=== PATIENT | male | born 1985 | race Caucasian/White ===

== ENCOUNTER 2024-08-08 11:36 | Inpatient (IN) | payer OTHER ==
[2024-08-08 12:04] VITALS: BMI 17.9
[2024-08-08] MEDS ORDERED: DICYCLOMINE HCL 10 MG CAPSULE PO PRN (12:12)
[2024-08-08] MEDS ORDERED: methaDONE HCL 10 MG TABLET (FOR DETOX USE ONLY) PO PRN (12:12)
[2024-08-08] MEDS ORDERED: MAG HYDROX/AL HYDROX/SIMETH 30 ML UNIT-DOSE CUP PO PRN (12:12)
[2024-08-08] MEDS ORDERED: diazePAM 5 MG TABLET PO PRN (12:12)
[2024-08-08] MEDS ORDERED: BENZOCAINE/MENTHOL (CHLORASEPTIC ) LOZENGE MM PRN (12:12)
[2024-08-08] MEDS ORDERED: NALOXONE (NARCAN) HCL 4 MG/0.1 ML SPRAY NS PRN (12:12)
[2024-08-08] MEDS ORDERED: BISMUTH SUBSALICYLATE 262 MG/15 ML BTL PO PRN (12:12)
[2024-08-08] MEDS ORDERED: POLYETHYLENE GLYCOL (HEALTHYLAX) 3350 17 GM PACKET PO PRN (12:12)
[2024-08-08] MEDS ORDERED: IBUPROFEN 400 MG TABLET (FP) PO PRN (12:12)
[2024-08-08] MEDS ORDERED: MAGNESIUM HYDROX 2400MG/30ML ORAL SUSPENSION 30 ML CUP PO PRN (12:12)
[2024-08-08] MEDS ORDERED: guaiFENesin 600 MG TABLET.ER (FP) PO PRN (12:12)
[2024-08-08] MEDS ORDERED: LOPERAMIDE HCL 2 MG CAPSULE PO PRN (12:12)
[2024-08-08] MEDS ORDERED: BENZONATATE 200 MG CAPSULE PO PRN (12:12)
[2024-08-08] MEDS ORDERED: NICOTINE 21 MG/24 HOURS TOPICAL PATCH ONE (12:44)
[2024-08-08] MEDS ORDERED: BUPRENORPHINE/NALOXONE 0.5 MG/0.125 MG FILM ONE (12:45)
[2024-08-08] MEDS ORDERED: methaDONE HCL 10 MG TABLET (FOR DETOX USE ONLY) ONE (12:45)
[2024-08-08] MEDS ORDERED: PRENATAL VITAMINS W/ FOLIC ACID TABLET (FP) PO ONE (12:45)
[2024-08-08] MEDS: BUPRENORPHINE/NALOXONE 0.5 MG/0.125 MG FILM SL ONE ×2 (12:47→22:17)
[2024-08-08] MEDS: PRENATAL VITAMINS W/ FOLIC ACID TABLET (FP) PO SCH (12:47)
[2024-08-08] MEDS: methaDONE HCL 10 MG TABLET (FOR DETOX USE ONLY) PO ONE (12:48)
[2024-08-08] MEDS: NICOTINE 21 MG/24 HOURS TOPICAL PATCH TD SCH (12:51)
[2024-08-08] MEDS ORDERED: cloNIDine HCL 0.1 MG TABLET ONE (12:59)
[2024-08-08] MEDS: cloNIDine HCL 0.1 MG TABLET PO SCH (13:00)
[2024-08-08] MEDS: diazePAM 5 MG TABLET PO SCH (17:40)
[2024-08-08] MEDS: ACETAMINOPHEN 325 MG TABLET (FP) PO PRN (17:41)
[2024-08-08] MEDS: THIAMINE 100 MG TABLET PO SCH (22:14)
[2024-08-08] MEDS: MELATONIN 5 MG TABLETS PO SCH (22:14)
[2024-08-08] MEDS: SUVOREXANT 5 MG TABLET PO PRN (22:16)
[2024-08-09] MEDS: IBUPROFEN 600 MG TABLET (FP) PO PRN (05:48)
[2024-08-09] MEDS: METHOCARBAMOL 500 MG TABLET PO PRN (05:50)
[2024-08-09 09:50] LABS: HEMATOCRIT 44.4 % (35.4-49); HEMOGLOBIN 14.8 GM/dL (11.7-16.9); MCH 33.4 pg (25.7-33.7); MCHC 33.4 g/dl (32.0-35.9); MEAN CELL VOLUME 100.1 fl (80-96); MEAN PLT VOLUME 8.6 fl (7.5-11.1); PLATELET COUNT 223 10^3/uL (134-434); RBC 4.44 M/mm3 (4.00-5.60); RDW 13.9 % (11.9-15.9); WHITE BLOOD COUNT 8.5 K/mm3 (4.0-10.0)
[2024-08-09 10:17] LABS: POTASSIUM 4.1 mmol/L (3.5-5.1)
[2024-08-09 10:21] LABS: ALBUMIN 3.5 g/dl (3.4-5.0); BLOOD UREA NITROGEN 14.4 mg/dL (7-18)
[2024-08-09 10:23] LABS: CALCIUM 8.9 mg/dL (8.5-10.1)
[2024-08-09 10:24] LABS: CREATININE 0.7 mg/dL (0.55-1.3)
[2024-08-09] MEDS: methaDONE HCL 10 MG TABLET (FOR DETOX USE ONLY) PO ONE (10:24)
[2024-08-09] MEDS: BUPRENORPHINE/NALOXONE 0.5 MG/0.125 MG FILM SL SCH (10:24)
[2024-08-09 10:25] LABS: BILIRUBIN,TOTAL 1.2 mg/dL (0.2-1)
[2024-08-09 10:26] LABS: TOT PROT 6.4 g/dl (6.4-8.2)
[2024-08-09] MEDS: ONDANSETRON *ODT* 4 MG TABLET SL PRN (12:58)
[2024-08-10] MEDS: diazePAM 5 MG TABLET PO SCH (05:10)
[2024-08-10] MEDS: BUPRENORPHINE/NALOXONE 2 MG/0.5 MG FILM PACKET SL SCH (09:52)
[2024-08-11] MEDS: diazePAM 5 MG TABLET PO SCH (05:41)
[2024-08-11] MEDS: methaDONE HCL 10 MG TABLET (FOR DETOX USE ONLY) PO ONE (10:14)
[2024-08-11] MEDS: BUPRENORPHINE/NALOXONE 4 MG/1 MG FILM PACKET SL SCH (10:15)
[2024-08-11] MEDS: ACAMPROSATE CALCIUM 333 MG TABLET.DR PO SCH (13:17)
[2024-08-11] MEDS: SUVOREXANT 5 MG TABLET PO PRN (22:11)
[2024-08-12] MEDS: diazePAM 5 MG TABLET PO ONE (05:43)
[2024-08-12] MEDS: BUPRENORPHINE/NALOXONE 8 MG/2 MG FILM PACKET SL SCH (10:04)
[2024-08-12] MEDS: hydrOXYzine PAMOATE 25 MG CAPSULE (FP) PO PRN (17:39)
[2024-08-13] MEDS: methaDONE HCL 10 MG TABLET (FOR DETOX USE ONLY) PO ONE (10:11)
[2024-08-13] MEDS: BUPRENORPHINE/NALOXONE 8 MG/2 MG FILM PACKET SL SCH (10:11)
[2024-08-13] MEDS ORDERED: NICOTINE POLACRILEX 2 MG GUM BUC PRN (15:58)
[2024-08-14 06:07] VITALS: RESP 17
[2024-08-14 09:24] VITALS: BP 116/83; PULSE 90; TEMP 98
[2024-08-14] MEDS: NALOXONE (NYS OPIOID OVERDOSE PROGRAM) 4 MG/0.1 ML SPRAY NS PRN (09:27)
== END 2024-08-14 09:35 | disposition home or self-care (01) | DRG 773 ==
LOC: YASAS 11:36 → Y3N 12:40
PROVIDERS: ADMIT Allergy & Immunology; ATTEND Surgery
PROC: HZ2ZZZZ Detoxification Services for Substance Abuse Treatment (ICD-10-PCS; principal; 2024-08-08)
DX: F11.23 Opioid dependence with withdrawal (principal); F10.230 Alcohol dependence with withdrawal, uncomplicated; F13.231 Sedative, hypnotic or anxiolytic dependence with withdrawal delirium; F12.20 Cannabis dependence, uncomplicated; F17.210 Nicotine dependence, cigarettes, uncomplicated; F31.9 Bipolar disorder, unspecified; F19.24 Other psychoactive substance dependence with psychoactive substance-induced mood disorder; Z85.6 Personal history of leukemia; Z56.0 Unemployment, unspecified; Z59.00 Homelessness unspecified
CPT/HCPCS: 36415; 80053; 80307; 85027; 86780; 93005; 93010; Q0162

== ENCOUNTER 2024-10-17 09:46 | Inpatient (IN) | payer OTHER ==
[2024-10-17 10:13] VITALS: BMI 20.3
[2024-10-17] MEDS ORDERED: NALOXONE (NARCAN) HCL 4 MG/0.1 ML SPRAY NS PRN (10:41)
[2024-10-17] MEDS ORDERED: BENZOCAINE/MENTHOL (CHLORASEPTIC ) LOZENGE MM PRN (10:41)
[2024-10-17] MEDS ORDERED: NICOTINE POLACRILEX 2 MG LOZENGE BC PRN (10:41)
[2024-10-17] MEDS ORDERED: NICOTINE POLACRILEX 2 MG GUM BUC PRN (10:41)
[2024-10-17] MEDS ORDERED: MAGNESIUM HYDROX 2400MG/30ML ORAL SUSPENSION 30 ML CUP PO PRN (10:41)
[2024-10-17] MEDS ORDERED: guaiFENesin 600 MG TABLET.ER (FP) PO PRN (10:41)
[2024-10-17] MEDS ORDERED: IBUPROFEN 400 MG TABLET (FP) PO PRN (10:41)
[2024-10-17] MEDS ORDERED: POLYETHYLENE GLYCOL (HEALTHYLAX) 3350 17 GM PACKET PO PRN (10:41)
[2024-10-17] MEDS ORDERED: MAG HYDROX/AL HYDROX/SIMETH 30 ML UNIT-DOSE CUP PO PRN (10:41)
[2024-10-17] MEDS ORDERED: LOPERAMIDE HCL 2 MG CAPSULE PO PRN (10:41)
[2024-10-17] MEDS ORDERED: BENZONATATE 200 MG CAPSULE PO PRN (10:41)
[2024-10-17] MEDS ORDERED: ACETAMINOPHEN 325 MG TABLET (FP) PO PRN (10:41)
[2024-10-17] MEDS ORDERED: DICYCLOMINE HCL 10 MG CAPSULE PO PRN (10:41)
[2024-10-17] MEDS ORDERED: BISMUTH SUBSALICYLATE 524 MG/30 ML PO PRN (10:41)
[2024-10-17] MEDS ORDERED: IBUPROFEN 600 MG TABLET (FP) PO PRN (10:41)
[2024-10-17] MEDS ORDERED: ONDANSETRON *ODT* 4 MG TABLET SL PRN (10:41)
[2024-10-17] MEDS ORDERED: diazePAM 5 MG TABLET ONE (11:19)
[2024-10-17] MEDS: diazePAM 5 MG TABLET PO SCH (11:21)
[2024-10-17] MEDS: BUPRENORPHINE/NALOXONE 8 MG/2 MG FILM PACKET SL ONE (17:05)
[2024-10-17] MEDS: QUEtiapine FUMARATE 100 MG TABLET (FP) PO SCH (22:24)
[2024-10-17] MEDS: MELATONIN 5 MG TABLETS PO SCH (22:24)
[2024-10-17] MEDS: BUPRENORPHINE/NALOXONE 8 MG/2 MG FILM PACKET SL SCH (22:25)
[2024-10-17] MEDS: THIAMINE 100 MG TABLET PO SCH (22:25)
[2024-10-18] MEDS: METHOCARBAMOL 500 MG TABLET PO PRN (05:50)
[2024-10-18] MEDS: PRENATAL VITAMINS W/ FOLIC ACID TABLET (FP) PO SCH (10:05)
[2024-10-18 11:10] LABS: POTASSIUM 4.3 mmol/L (3.5-5.1)
[2024-10-18 11:15] LABS: CALCIUM 8.9 mg/dL (8.5-10.1)
[2024-10-18 11:16] LABS: ALBUMIN 3.2 g/dl (3.4-5.0); BLOOD UREA NITROGEN 11.5 mg/dL (7-18)
[2024-10-18 11:17] LABS: HEMATOCRIT 41.3 % (35.4-49); MCH 33.6 pg (25.7-33.7); MCHC 33.9 g/dl (32.0-35.9); MEAN CELL VOLUME 98.9 fl (80-96); MEAN PLT VOLUME 8.7 fl (7.5-11.1); PLATELET COUNT 183 10^3/uL (134-434); RBC 4.18 M/mm3 (4.00-5.60); RDW 14.5 % (11.9-15.9); WHITE BLOOD COUNT 6.6 K/mm3 (4.0-10.0)
[2024-10-18 11:19] LABS: CREATININE 0.7 mg/dL (0.55-1.3)
[2024-10-18 11:20] LABS: BILIRUBIN,TOTAL 0.7 mg/dL (0.2-1); TOT PROT 5.8 g/dl (6.4-8.2)
[2024-10-19] MEDS: diazePAM 5 MG TABLET PO SCH (05:58)
[2024-10-20] MEDS: diazePAM 5 MG TABLET PO SCH (05:38)
[2024-10-20] MEDS: diazePAM 5 MG TABLET PO PRN (10:18)
[2024-10-21] MEDS: diazePAM 5 MG TABLET PO ONE (05:20)
[2024-10-21 12:18] VITALS: BP 121/79; PULSE 61; RESP 18; TEMP 97.7
== END 2024-10-21 13:39 | disposition other institution (70) | DRG 773 ==
LOC: YASAS 09:46 → Y3N 11:44
PROVIDERS: ADMIT Allergy & Immunology; ATTEND Allergy & Immunology
PROC: HZ2ZZZZ Detoxification Services for Substance Abuse Treatment (ICD-10-PCS; principal; 2024-10-17)
DX: F10.230 Alcohol dependence with withdrawal, uncomplicated (principal); F11.20 Opioid dependence, uncomplicated; F12.20 Cannabis dependence, uncomplicated; F17.210 Nicotine dependence, cigarettes, uncomplicated; F31.9 Bipolar disorder, unspecified; F41.9 Anxiety disorder, unspecified; Z85.6 Personal history of leukemia
CPT/HCPCS: 36415; 80053; 80305; 80307; 85027; 86780; 87811

== ENCOUNTER 2024-10-21 13:47 | Inpatient (IN) | payer OTHER ==
[2024-10-21 14:26] VITALS: BP 141/93; PULSE 81; RESP 18; TEMP 98.4
[2024-10-21] MEDS ORDERED: BENZOCAINE/MENTHOL (CHLORASEPTIC ) LOZENGE MM PRN (14:40)
[2024-10-21] MEDS ORDERED: NALOXONE (NARCAN) HCL 4 MG/0.1 ML SPRAY NS PRN (14:40)
[2024-10-21] MEDS ORDERED: guaiFENesin 600 MG TABLET.ER (FP) PO PRN (14:40)
[2024-10-21] MEDS ORDERED: IBUPROFEN 600 MG TABLET (FP) PO PRN (14:40)
[2024-10-21] MEDS ORDERED: METHOCARBAMOL 500 MG TABLET PO PRN (14:40)
[2024-10-21] MEDS ORDERED: MAG HYDROX/AL HYDROX/SIMETH 30 ML UNIT-DOSE CUP PO PRN (14:40)
[2024-10-21] MEDS ORDERED: LOPERAMIDE HCL 2 MG CAPSULE PO PRN (14:40)
[2024-10-21] MEDS ORDERED: MAGNESIUM HYDROX 2400MG/30ML ORAL SUSPENSION 30 ML CUP PO PRN (14:40)
[2024-10-21] MEDS ORDERED: hydrOXYzine PAMOATE 25 MG CAPSULE (FP) PO PRN (14:40)
[2024-10-21] MEDS ORDERED: IBUPROFEN 400 MG TABLET (FP) PO PRN (14:40)
[2024-10-21] MEDS ORDERED: ACETAMINOPHEN 325 MG TABLET (FP) PO PRN (14:40)
[2024-10-21] MEDS ORDERED: NALOXONE HCL 0.4 MG/ML VIAL IVPUSH PRN (14:40)
[2024-10-21] MEDS ORDERED: POLYETHYLENE GLYCOL (HEALTHYLAX) 3350 17 GM PACKET PO PRN (14:40)
[2024-10-21] MEDS ORDERED: BENZONATATE 200 MG CAPSULE PO PRN (14:40)
[2024-10-21] MEDS: BUPRENORPHINE/NALOXONE 8 MG/2 MG FILM PACKET SL SCH (15:20)
[2024-10-21] MEDS ORDERED: THIAMINE 100 MG TABLET PO SCH (22:00)
[2024-10-21] MEDS ORDERED: MELATONIN 5 MG TABLETS PO SCH (22:00)
[2024-10-22] MEDS ORDERED: PRENATAL VITAMINS W/ FOLIC ACID TABLET (FP) PO SCH (10:00)
== END 2024-10-21 15:50 | disposition left against medical advice (07) | DRG 770 ==
LOC: YASAS 13:47 → Y5N 13:50
PROVIDERS: ADMIT Psychiatry & Neurology Pain Medicine; ATTEND Psychiatry & Neurology Pain Medicine
PROC: HZ42ZZZ Group Counseling for Substance Abuse Treatment, Cognitive-Behavioral (ICD-10-PCS; principal; 2024-10-21)
DX: F10.20 Alcohol dependence, uncomplicated (principal); F11.20 Opioid dependence, uncomplicated; F17.210 Nicotine dependence, cigarettes, uncomplicated; F31.9 Bipolar disorder, unspecified; F19.24 Other psychoactive substance dependence with psychoactive substance-induced mood disorder